=== PATIENT | female | born 1970 | race Caucasian/White ===

== ENCOUNTER 2020-07-26 22:33 | Emergency (ER) | payer OTHER ==
[~2020-07-26] VITALS: Ht 160 cm; Wt 72.6 kg
[2020-07-26] MEDS ORDERED: ONDANSETRON HCL/PF 4 MG/2 ML VIAL ONE (22:58)
[2020-07-26] MEDS ORDERED: ONDANSETRON HCL/PF 4 MG/2 ML VIAL IVP ONE (23:00)
--- NOTE | 2020-07-26 23:02 | NUR ---
BIBFAMILY FROM HOME TO ER BED 7. AAOX4. NOT IN RESP DISTRESS,BREATHING EVEN AND UNLABORED. AMBULATORY. 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 MD WAS AT THE BEDSIDE FOR EVAL. ORDERS RECEIVED, NOTED AND CARRIED OUT. IV LINE ESTABLISHED ON L AC 18G, BLOOD DRAWN AND SENT TO LAB. EMT AT BEDSIDE FOR EKG. PT ON MONITOR
[2020-07-26 23:33] LABS: BASOPHILS # (AUTO) 0.1 /CMM (0.0-0.2); EOSINOPHILS % (AUTO) 0.4 % (0.0-6.0); HEMATOCRIT 43 % (33-45); HEMOGLOBIN 14.3 g/dL (11.5-14.8); LYMPHOCYTES # (AUTO) 1.6 /CMM (0.8-4.8); MEAN CORPUSCULAR HGB CONC 33 g/dl (31.0-36.0); MEAN CORPUSCULAR VOLUME 91 fL (82-100); MONOCYTES # (AUTO) 0.4 /CMM (0.1-1.30); MONOCYTES % (AUTO) 4.5 % (2.0-12.0); NEUTROPHILS # (AUTO) 7.3 /CMM (1.8-8.9); NEUTROPHILS % (AUTO) 77.1 % (43.0-81.0); PLATELET COUNT (AUTO) 262 /CMM (150-450); RED BLOOD CELL COUNT(AUTO) 4.73 MIL/uL (4.0-5.2); WHITE BLOOD COUNT (AUTO) 9.5 K/uL (4.3-11.0)
--- NOTE | 2020-07-26 23:37 | NUR ---
Pt in bed resting. verbalized that pain is getting better
[2020-07-26 23:47] LABS: CALCIUM, SERUM 9.4 mg/dL (8.5-10.1); CARBON DIOXIDE 29 mmol/L (21-32); CHLORIDE 104 mmol/L (98-107); CREATININE 0.7 mg/dL (0.6-1.3); GLUCOSE 126 mg/dL (74-106); POTASSIUM 3.1 mmol/L (3.5-5.1); SODIUM SERUM 142 mmol/L (136-145); UREA NITROGEN, BLOOD 16 mg/dL (7-18)
[2020-07-26] MEDS ORDERED: MAG HYDROX/AL HYDROX/SIMETH 30 ML UDC ONE (23:56)
[2020-07-26] MEDS ORDERED: LIDOCAINE VISCOUS 2% UD 15 ML UDC ONE (23:56)
[2020-07-27] MEDS ORDERED: MAG HYDROX/AL HYDROX/SIMETH 30 ML UDC PO ONE
[2020-07-27] MEDS ORDERED: LIDOCAINE VISCOUS 2% UD 15 ML UDC MM ONE
[2020-07-27] MEDS ORDERED: ONDANSETRON HCL/PF 4 MG/2 ML VIAL ONE (00:14)
[2020-07-27] MEDS ORDERED: ONDANSETRON HCL/PF 4 MG/2 ML VIAL IV ONE (00:30)
--- NOTE | 2020-07-27 02:00 | NUR ---
Becky muñoz in ED - 07/27/20 at 0201 by TOMAS RT AND TECH AT BEDSIDE
--- NOTE | 2020-07-27 02:01 | NUR ---
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
--- NOTE | 2020-07-27 02:49 | NUR ---
called lab for troponin results
[2020-07-27 03:38] VITALS: BP 129/79
--- NOTE | 2020-07-27 03:38 | NUR ---
IV removed. Catheter intact and site benign. Pressure and 4x4 applied to site. No bleeding noted.
--- NOTE | 2020-07-27 03:38 | NUR ---
Patient discharged to home in stable condition. Written and verbal after care instructions given. Patient verbalizes understanding of instruction and rx. Pt ambulated out of E.D. vss.
== END 2020-07-27 03:39 | disposition home or self-care (01) ==
LOC: ER 22:35
DX: R07.89 Other chest pain (principal); R11.2 Nausea with vomiting, unspecified; I10 Essential (primary) hypertension; Z98.890 Other specified postprocedural states
CPT/HCPCS: 36415 ×2; 71045; 80048; 84484 ×2; 85025; 93005 ×2; 96374; 96376; 99285; J2405 ×2

== ENCOUNTER 2021-01-19 15:43 | Emergency (ER) | payer OTHER ==
[~2021-01-19] VITALS: Ht 160 cm; Wt 69.4 kg
[2021-01-19 15:57] VITALS: BP 123/77
--- NOTE | 2021-01-19 16:00 | NUR ---
LEFT HEEL PAIN X 2 DAYS.
[2021-01-19] MEDS ORDERED: NAPR-1009 PO (16:15)
--- NOTE | 2021-01-19 16:21 | NUR ---
Patient discharged to home in stable condition. Written and verbal after care instructions given. Patient verbalizes understanding of instruction.
== END 2021-01-19 16:22 | disposition home or self-care (01) ==
LOC: ER 15:43
DX: M79.672 Pain in left foot (principal); M72.2 Plantar fascial fibromatosis; I10 Essential (primary) hypertension; E78.5 Hyperlipidemia, unspecified; Z98.890 Other specified postprocedural states